=== PATIENT | female | born 1960 | race Caucasian/White ===

== ENCOUNTER 2017-08-10 09:00 | Emergency (ER) | payer SELFPAY ==
[2017-08-10 09:22] VITALS: BP 142/80
[2017-08-10] MEDS ORDERED: Albuterol/Ipratropium NEB.SOL* Albuterol 2.5 MG/Ipratropium 0.5 MG 3 ML INH ONE (09:54)
--- NOTE | 2017-08-10 10:04 | UC ---
Respiratory Complaint HPI - HPI Summary HPI Summary: Cough, sinus pressure and congestion for about 5-7 days. No known fever but she has had chills. She has no known copd or lung disease but is a smoker. She has had wheezing and productive cough. - History of Current Complaint Chief Complaint: UCRespiratory Stated Complaint: COUGH/CONGESTION Time Seen by Provider: 08/10/17 09:48 Hx Obtained From: Patient Hx Last Menstrual Period: 2008 ?: No Onset/Duration: Gradual Onset, Lasting Days Severity Initially: Moderate Severity Currently: Moderate Character: Cough: Productive Aggravating Factors: Deep Breaths, Recumbent Position Alleviating Factors: Nothing Associated Signs And Symptoms: Positive: Dyspnea, Chills, Wheezing, URI, Nasal Congestion. Negative: Hemoptysis, Calf Pain, Calf Swelling - Allergies/Home Medications Allergies/Adverse Reactions: Allergies Allergy/AdvReac Type Severity Reaction Status Date / Time Meperidine [From Demerol HCl] Allergy Hives Verified 08/10/17 09:22 PMH/Surg Hx/FS Hx/Imm Hx Previously Healthy: No - smoker. - Surgical History Surgical History: Yes Surgery Procedure, Year, and Place: OPEN HEART SX 1960; and 2009 aortic aneurysm; pacemeker 2010-06; right inguinal 2007 - Family History Known Family History: Positive: Respiratory Disease - SMOKES - Social History Alcohol Use: Occasionally Substance Use Type: None Smoking Status (MU): Light Every Day Tobacco Smoker Type: Cigarettes Amount Used/How Often: 1/2 PPD Length of Time of Smoking/Using Tobacco: 36 YRS Have You Smoked in the Last Year: Yes Review of Systems ENT: Sinus Congestion Respiratory: Cough All Other Systems Reviewed And Are Negative: Yes Physical Exam Triage Information Reviewed: Yes Appearance: Well-Appearing, No Pain Distress, Well-Nourished Vital Signs: Initial Vital Signs Temp 98.1 F 08/10/17 09:10 Pulse 61 08/10/17 09:10 Resp 22 08/10/17 09:10 BP 142/80 08/10/17 09:10 Pulse Ox 98 08/10/17 09:10 Vital Signs Reviewed: Yes Eyes: Positive: Conjunctiva Clear ENT: Positive: Normal ENT inspection, Pharynx normal, Pharyngeal erythema, Nasal congestion, TM bulging, Hoarse voice, Uvula midline. Negative: TM dull, TM red, Tonsillar swelling, Tonsillar exudate, Trismus, Sinus tenderness Neck: Positive: Supple, Nontender, No Lymphadenopathy Respiratory: Positive: No respiratory distress, No accessory muscle use, Rhonchi , Wheezing. Negative: Respiratory distress, Accessory muscle use, Crackles, Stridor Cardiovascular Exam: Other - systolic murmur. Cardiovascular: Positive: Pulses Normal, Brisk Capillary Refill. Negative: Tachycardia Abdomen Description: Positive: Soft. Negative: Distended, Guarding Musculoskeletal: Positive: Strength Intact, ROM Intact, No Edema Neurological: Positive: Alert, Muscle Tone Normal, Fatigued Psychological: Positive: Age Appropriate Behavior Skin: Positive: rashes UC Diagnostic Evaluation - Laboratory O2 Sat by Pulse Oximetry: 98 Respiratory Course/Dx - Course Course Of Treatment: She may have copd and this may be an exacerbation. She has no signs of serious infection or pneumonia. She is breathing comfortably and no fever or tachycardia. We discussed return here for any worsening. In the meantime, we will treat aggressively for her respiratory tightness and cough. - Differential Dx/Diagnosis Provider Diagnoses: acute bronchitis with bronchospasm. Murmur- chronic and known about. Discharge - Discharge Plan Condition: Good Disposition: HOME Prescriptions: Albuterol HFA INHALER* [Ventolin HFA Inhaler*] 1 puff INH Q4H PRN #1 mdi PRN Reason: Cough Azithromyxin KAE (NF) [Z-Kae (Zithromax) 250 mg tabs #6] 2 tab PO .TODAY, THEN 1 DAILY #6 tab predniSONE TAB* [Deltasone TAB*] 20 mg PO DAILY #15 tab Spacer/Aerosol-Holding Chamber [Aerochamber Plus] 1 mis XX Q2HR #1 mis Patient Education Materials: Acute Bronchitis (ED), Bronchospasm (ED) Referrals: Cj Irizarry MD [Primary Care Provider] - 2 Days Additional Instructions: Start mucinex and decongestants. REturn here if not better.
== END 2017-08-10 10:25 | disposition home or self-care (01) ==
LOC: UCCORT 09:00
DX: J20.9 Acute bronchitis, unspecified (principal); R01.1 Cardiac murmur, unspecified; Z95.0 Presence of cardiac pacemaker; Z88.5 Allergy status to narcotic agent; F17.210 Nicotine dependence, cigarettes, uncomplicated
CPT/HCPCS: 99212; A9270-GY; G0463

== ENCOUNTER 2018-02-17 13:31 | Emergency (ER) | payer BC ==
[2018-02-17 13:58] VITALS: BP 124/94
--- NOTE | 2018-02-17 15:02 | UC ---
Ear Complaint HPI - HPI Summary HPI Summary: pt c/o left ear pain, left facial cheek swelling and tenderness and pain underneath left lower jaw. Denies recent dental work or trauma. - History of Current Complaint Chief Complaint: UCEar Stated Complaint: LT SIDE JAW SWELLING/PAIN Time Seen by Provider: 02/17/18 14:43 Hx Obtained From: Patient Hx Last Menstrual Period: 2008 ?: No Onset/Duration: Gradual Onset, Lasting Days, Still Present Severity Initially: Mild Severity Currently: Moderate Pain Intensity: 7 Aggravating Factors: Nothing Associated Signs/Symptoms: Positive: Swelling @ - left side of facial cheek, URI Symptoms - Allergies/Home Medications Allergies/Adverse Reactions: Allergies Allergy/AdvReac Type Severity Reaction Status Date / Time bee venom protein (honey bee) Allergy Swelling Verified 02/17/18 13:50 meperidine [From Demerol] Allergy Hives Verified 02/17/18 13:50 Home Medications: Home Medications Calcium Carbonate/Vitamin D3 [Calcium Carbonate/Vitamin] 1 tab PO DAILY [History Confirmed 02/17/18] Cholecalciferol TAB* [Vitamin D TAB*] 1,000 units PO DAILY 02/17/18 [History Confirmed 02/17/18] Levothyroxine TAB* [Synthroid TAB*] 112 mcg PO DAILY 02/17/18 [History Confirmed 02/17/18] PMH/Surg Hx/FS Hx/Imm Hx Previously Healthy: Yes - Surgical History Surgical History: Yes Surgery Procedure, Year, and Place: Pacemaker, 2011, [facility]; Aortic Cardiac Aneurysm, 2008, [facility]; Right Inguinal Herniorrhaphy, 2007, [facility]; VSD , 1960, [facility] - Family History Known Family History: Positive: Respiratory Disease - SMOKES - Social History Occupation: Employed Full-time Lives: With Family Alcohol Use: Occasionally Substance Use Type: None Smoking Status (MU): Heavy Every Day Tobacco Smoker Type: Cigarettes Amount Used/How Often: 1/2 PPD Length of Time of Smoking/Using Tobacco: Since Age 22 Have You Smoked in the Last Year: Yes Household Exposure Type: Cigarettes Review of Systems Constitutional: Fatigue Skin: Negative Eyes: Negative ENT: Ear Ache Respiratory: Negative Cardiovascular: Negative Gastrointestinal: Negative Genitourinary: Negative Motor: Negative Neurovascular: Negative Musculoskeletal: Negative Neurological: Negative Psychological: Negative Is Patient Immunocompromised?: No All Other Systems Reviewed And Are Negative: Yes Physical Exam Triage Information Reviewed: Yes Appearance: Ill-Appearing Vital Signs: Initial Vital Signs Temp 97.5 F 02/17/18 13:47 Pulse 60 02/17/18 13:47 Resp 16 02/17/18 13:47 BP 124/94 02/17/18 13:47 Pulse Ox 97 02/17/18 13:47 Vital Signs Reviewed: Yes Eye Exam: Normal ENT Exam: Normal Dental Exam: Normal Neck: Positive: Enlarged Nodes @ - left parotid and left submandibular Respiratory Exam: Normal Cardiovascular Exam: Normal Musculoskeletal Exam: Normal Neurological Exam: Normal Psychological Exam: Normal Skin Exam: Normal Ear Complaint Course/Dx - Differential Dx/Diagnosis Differential Diagnosis/HQI/PQRI: Otitis Externa, Otitis Media, Other - parotiditis lymphadenopathy plugged salivary gland Provider Diagnoses: lymphadenopathy Discharge - Sign-Out/Discharge Documenting (check all that apply): Patient Departure - Discharge Plan Condition: Stable Disposition: HOME Patient Education Materials: Lymphadenopathy (ED) Forms: *Work Release Referrals: Cj Irizarry MD [Primary Care Provider] - If Needed - Billing Disposition and Condition Condition: STABLE Disposition: Home
== END 2018-02-17 15:08 | disposition home or self-care (01) ==
LOC: UCCORT 13:31
DX: R59.0 Localized enlarged lymph nodes (principal); H92.02 Otalgia, left ear; F17.210 Nicotine dependence, cigarettes, uncomplicated; Z91.030 Bee allergy status; Z88.5 Allergy status to narcotic agent
CPT/HCPCS: 99211; G0463